=== PATIENT | female | born 1935 | race Caucasian/White ===

== ENCOUNTER → 2019-02-10 | Outpatient (CLI) | payer MEDICARE ==
--- NOTE | 2019-02-10 14:51 | RAD ---
EXAM DESCRIPTION: Chest,2 Views CLINICAL HISTORY: 84 years Female, ACUTE UPPER RESPIRATORY INFECTION COMPARISON: None available. TECHNIQUE: PA and lateral radiographs of the chest were obtained. FINDINGS: Dual lead pacemaker is noted. Trachea is midline.The cardiomediastinal silhouette is normal in size. The pulmonary vasculature is within normal limits.The lungs are clear with no acute consolidation.No evidence of pleural effusions.No evidence of pneumothorax. IMPRESSION: No acute cardiopulmonary process. Electronically signed by: Modesta Valentin MD 02/10/2019 2:49 PM PRINT PRODUCTION COORDINATOR
== END ==
LOC: LAB.O 14:18
PROVIDERS: ATTEND Nurse Practitioner
DX: J06.9 Acute upper respiratory infection, unspecified (principal)

== ENCOUNTER 2019-08-08 18:08 | Inpatient (IN) | payer MEDICARE ==
--- NOTE | 2019-08-08 18:45 | ED.PDOC ---
History of Present Illness - General Chief Complaint: General Stated Complaint: AMS, CHRONIC RIGHT SHOULDER PAIN Time Seen by Provider: 08/08/19 18:45 Source: patient, RN notes reviewed, Vital Signs reviewed, EMS notes reviewed, RN/MD Exam Limitations: no limitations - History of Present Illness Initial Comments: Patient is an 84-year-old female with history of stage IV chronic kidney disease, hypothyroidism, dementia, hypertension, GERD who [facility]. [facility] staff patient developed a cough several days ago. She had a chest x-ray yesterday that I do not have the results of but was started on cefdinir. Today, her mental status was decreased so they theron labs and sent her to ED for evaluation. On today's labs she was sent with, she has a white cell count of 22,000 and a creatinine of 2.0. Patient states that she does not feel well, but she cannot give me any further description of that. States she has had a cough for several days but denies shortness of breath or fever. Has had mild abdominal pain, but denies vomiting or diarrhea. Allergies/Adverse Reactions: Allergies Ibuprofen Adverse Reaction (Verified 08/08/19 18:13) Review of Systems - Review of Systems Constitutional: Denies: chills, fever, weakness EENTM: Denies: nose congestion, throat pain Respiratory: States: cough, short of breath Cardiology: Denies: chest pain, palpitations, syncope Gastrointestinal/Abdominal: States: abdominal pain. Denies: diarrhea, nausea, vomiting Musculoskeletal: Denies: back pain, neck pain Skin: States: no symptoms reported Neurological: Denies: headache, paresthesia, weakness All other Systems: Reviewed and Negative Past Medical History (General) - Patient Medical History Hx Seizures: No Hx Stroke: No Hx Dementia: No Hx Asthma: Yes Hx of COPD: Yes Hx Cardiac Disorders: Yes Hx Congestive Heart Failure: No Hx Pacemaker: No Hx Hypertension: No Hx Thyroid Disease: No Hx Diabetes: No Hx Gastroesophageal Reflux: No Hx Renal Disease: No Hx Cancer: No Hx of HIV: No Hx Hepatitis C: No Hx MRSA: No - Vaccination History Hx Tetanus, Diphtheria Vaccination: Yes Hx Influenza Vaccination: No Hx Pneumococcal Vaccination: No Immunizations Up to Date: No - Social History Hx Chewing Tobacco Use: No Hx Alcohol Use: No Hx Depression: No Feels Threatened In Home Enviroment: No Feels Threatened In a Relationship: No Hx Physical Abuse: No Hx Emotional Abuse: No Hx Suspected Abuse: No - Activities of Daily Living Intermediate/Assisted Living (if applicable):: [facility] - Female History Patient is a Female of Child Bearing Age (10 -59 yrs old): No Patient : No Family Medical History - Family History Mother Family History: No Known Living Status: Hx Family Asthma: No Hx Family Congestive Heart Failure: No Hx Family Hypertension: No Hx Family Stroke: No Physical Exam - Physical Exam General Appearance: Alert, Other - Lying on gurney in no distress Eye Exam: bilateral normal - PERRL Neck: non-tender, full range of motion, supple Respiratory: chest non-tender, no respiratory distress, other - Coarse BS bilaterally Cardiovascular/Chest: normal peripheral pulses, regular rate, rhythm, no edema Gastrointestinal/Abdominal: soft, no pulsatile mass, other - Mild TTP diffusely. No guarding or rigidity Back Exam: no CVA tenderness, no vertebral tenderness Extremity: normal range of motion, non-tender Neurologic: no motor/sensory deficits, alert, other - answers simple questions Skin Exam: warm/dry Progress - Progress Progress: 08/08/19 20:13 Patient has history of hypertension, chronic kidney disease and dementia who presents from [facility] with cough and decreased mental status. She was started on cefdinir yesterday. Labs done just prior to arrival show white blood cell count of 22,000 and mildly elevated creatinine. Lactic acid and urinalysis are negative. Chest x-ray shows a left lower lobe pneumonia and CT the abdomen is otherwise unremarkable. Will admit for IV antibiotics for pneumonia and continued treatment. Strict return precautions given. - Results/Orders Results/Orders: CT ABD PELVIS IMPRESSION: 1. No acute inflammatory process identified within the abdomen and pelvis. 2. Left lower lobe infiltrate. CHEST XRAY EXAM DESCRIPTION: XR Chest,1 View CLINICAL HISTORY: cough TECHNIQUE: Single frontal view of the chest is submitted. COMPARISON: 02/10/2019 FINDINGS: Heart: The cardiothoracic silhouette is within normal limits. Left chest wall dual-lead pacer. Lungs: Patchy left basilar opacification. Mediastinum: Unremarkable Pleura: No appreciable effusion. No pneumothorax. Bones: Multilevel spondylosis. No acute fracture. Upper abdomen: Unremarkable IMPRESSION: Left basilar infiltrate. 08/08/19 18:49 IV Care:Saline Lock per Protoc QSHIFT Telemetry .ONCE Sodium Chloride 0.9% (Flush) [Saline Flush Syringe] 10 ml IV PRN PRN EKG Assessment ONCE EKG Stat Pulse Ox Stat Pulse Oximetry Assessment DAILY 08/08/19 19:10 BLOOD CULTURE Stat 08/08/19 21:00 LACTIC ACID Q2H CBC and CMP in EHR Laboratory Results - last 24 hr 08/08/19 08/08/19 08/08/19 18:51 19:10 19:10 PT 9.8 INR < 1.00 PTT (SP) 25.2 Lactic Acid Creatine Kinase 16 L CK-MB (CK-2) 0.8 CK-MB (CK-2) % Not Reportable Troponin I 0.03 Urine Color Yellow Urine Appearance Clear Urine pH 5.0 Ur Specific [place] 1.020 Urine Protein 100 H Urine Glucose (UA) Negative Urine Ketones Negative Urine Blood Negative Urine Nitrite Negative Urine Bilirubin Negative Urine Urobilinogen 0.2 Ur Leukocyte Esterase Negative Urine RBC 0 Urine WBC 0-1 Ur Epithelial Cells 0 Amorphous Sediment 2+ Urine Bacteria Rare 08/08/19 19:10 PT INR PTT (SP) Lactic Acid 1.1 Creatine Kinase CK-MB (CK-2) CK-MB (CK-2) % Troponin I Urine Color Urine Appearance Urine pH Ur Specific [place] Urine Protein Urine Glucose (UA) Urine Ketones Urine Blood Urine Nitrite Urine Bilirubin Urine Urobilinogen Ur Leukocyte Esterase Urine RBC Urine WBC Ur Epithelial Cells Amorphous Sediment Urine Bacteria Departure - Departure Clinical Impression: Healthcare-associated pneumonia, Acute on chronic renal insufficiency Leukocytosis Qualifiers: Leukocytosis type: unspecified Qualified Code(s): D72.829 - Elevated white blood cell count, unspecified Dementia Qualifiers: Dementia type: unspecified type Dementia behavioral disturbance: without behavioral disturbance Qualified Code(s): F03.90 - Unspecified dementia without behavioral disturbance Time of Disposition: 20:16 Disposition: Admit Patient Condition: Fair Departure Forms: ED Discharge - Pt. Copy, Patient Portal Self Enrollment Referrals: Jeronimo Arvizu MD [Primary Care Provider] - 1-2 Weeks Decision To Admit - Decistion To Admit Decision to Admit Date: 08/08/19 Decision to Admit Time: 20:16
[2019-08-08] MEDS ORDERED: SODIUM CHLORIDE 0.9% (FLUSH) 10 ML SYG IV PRN ×2 (18:49→23:17)
[2019-08-08] MEDS ORDERED: SODIUM CHLORIDE 0.9% 1000ML 1,000 ML IVS ONE (18:49)
[2019-08-08] MEDS ORDERED: MEROPENEM 1 GM in SODIUM CHL 0.9% 50ML MIN-BAG+ 50 ML IVPB ONE (18:49)
--- NOTE | 2019-08-08 19:51 | CT ---
PROCEDURE: CT ABDOMEN PELVIS WITHOUT IV CONTRAST CLINICAL HISTORY: abd pain TECHNIQUE: Contiguous axial images obtained through the abdomen and pelvis without IV contrast. Coronal and sagittal reformatted images were provided. This exam was performed according to our departmental dose-optimization program, which includes automated exposure control, adjustment of the mA and/or kV according to patient size and/or use of iterative reconstruction technique. COMPARISON: None available for comparison. FINDINGS: Lung bases: Left basilar patchy reticular nodular opacities and consolidative changes. Coronary artery calcification. Liver: Grossly unremarkable Gallbladder and biliary system: Gallstones. No gallbladder wall thickening or pericholecystic fluid. Pancreas: Mild to moderate pancreatic parenchymal atrophy. Spleen: Grossly unremarkable Adrenals: Unremarkable Kidneys: No calculi. No hydronephrosis. Bowel: Moderate stool within the mid to distal large bowel. Colonic diverticula without adjacent inflammatory change. No obstruction. No appreciable mucosal thickening. Appendix: Pericecal suture material/surgical clips suggestive of prior appendectomy. No findings to suggest acute appendicitis. Urinary bladder: Decompressed around a Abrams catheter balloon. Reproductive: There has been a hysterectomy. No adnexal cysts or masses are identified. Lymph nodes: No pathologically enlarged lymph nodes. Peritoneum: No focal fluid collection. No free air. Vessels: Moderate to severe atherosclerotic disease. No abdominal aortic aneurysm. Abdominal wall: Tiny fat-containing umbilical hernia. Bones: Moderate to severe multilevel spondylosis.. Multilevel canal stenosis. No acute fracture. IMPRESSION: 1. No acute inflammatory process identified within the abdomen and pelvis. 2. Left lower lobe infiltrate. Electronically signed by: Isabella Aguilar MD 08/08/2019 7:50 PM CDT
--- NOTE | 2019-08-08 19:56 | RAD ---
EXAM DESCRIPTION: XR Chest,1 View CLINICAL HISTORY: cough TECHNIQUE: Single frontal view of the chest is submitted. COMPARISON: 02/10/2019 FINDINGS: Heart: The cardiothoracic silhouette is within normal limits. Left chest wall dual-lead pacer. Lungs: Patchy left basilar opacification. Mediastinum: Unremarkable Pleura: No appreciable effusion. No pneumothorax. Bones: Multilevel spondylosis. No acute fracture. Upper abdomen: Unremarkable IMPRESSION: Left basilar infiltrate. Electronically signed by: Isabella Aguilar MD 08/08/2019 7:54 PM CDT
--- NOTE | 2019-08-08 22:18 | HP ---
SUPERVISING PHYSICIAN: Dominik Keys MD CHIEF COMPLAINT: Altered mental status with upper respiratory symptoms. HISTORY OF PRESENT ILLNESS: This is an 84 year-old female patient with a history of dementia, chronic kidney disease and hypertension who came to the Emergency Room from [facility] due to some upper respiratory type symptoms as well as altered mental status. A day or so ago she had actually been treated for pneumonia with Cefdinir as an outpatient. Over the previous 24 hours, her mental status had decreased and [facility] and then she was sent to the Emergency Room. Initially, it was difficult to get a good medical history from her due to altered mental status and there was a very small amount of information from [facility]. Her initial vital signs showed a temperature of 98.4 with a heart rate of 80, blood pressure 133/44, respiratory rate 22 to 24 with an oxygen saturation of 92%. Lab showed a WBC of 22,200 with a hemoglobin of 9, hematocrit 27.9. She had a left shift on her differential. Electrolytes were within normal limits but her BUN was 49 and creatinine 2.07. Per the records, it appears that her baseline creatinine is about 1.5. Urinalysis was unremarkable. Chest x-ray shows left basilar infiltrate. She also had complaints of some nausea and vomiting with some abdominal pain. CT of the abdomen showed no acute inflammation process identified within the abdomen and pelvis and left lower lobe infiltrate. In the Emergency Room, she was given some fluids as well as some Merrem and the patient was admitted for left lower lobe pneumonia, failure outpatient therapy. PAST MEDICAL HISTORY: 1. Chronic kidney disease. 2. Hypothyroidism. 3. Bradycardia with a pacemaker. 4. Dementia. 5. Gastroesophageal reflux disease. 6. Hypertension. PAST SURGICAL HISTORY: 1. Hand surgery. 2. Knee surgery. 3. Hysterectomy. 4. Pacemaker insertion. CURRENT MEDICATIONS: Awaiting verification as well as being faxed from [facility]. ALLERGIES: Ibuprofen. FAMILY HISTORY: SOCIAL HISTORY: REVIEW OF SYSTEMS: GENERAL: Negative for chills, fever or weight changes. HEENT: Negative for sinus symptoms, ear pain, vision changes. RESPIRATORY: Positive for coughing and shortness of breath, negative for wheezing. CARDIAC: Negative for chest pain, palpitations, tachycardia. GI: Positive for generalized abdominal pain, negative for nausea, vomiting, diarrhea. MUSCULOSKELETAL: Negative for arthralgias, myalgias. . SKIN: Negative for lesions or rashes. NEUROLOGICAL: Positive for altered mental status. Negative for headaches or seizures. PHYSICAL EXAMINATION: VITAL SIGNS: Temperature 97.8, heart rate 74, blood pressure 150/59, respiratory rate 22, oxygen saturation 94%. GENERAL: This is an 84 year-old female patient lying in her hospital bed. HEENT: Normocephalic and atraumatic. Pupils are equal and reactive. NECK: Supple without mass. CHEST: Rhonchi scattered throughout all lung [place] but no wheezing or rales noted. At rest, she has a normal respiratory rate but with speaking she does get slightly tachypneic. She has to speak in 3 to 4-word phrases. CARDIOVASCULAR: Regular rate and rhythm. ABDOMEN: Soft, nondistended. She is mildly tender to palpation, especially in the right and left lower quadrants. There is no rebound tenderness, no guarding. EXTREMITIES: No cyanosis, clubbing, or edema. NEUROLOGIC: She is awake and alert. She is oriented to person only. She does answer some simple yes/no questions appropriately. SKIN: Warm and dry with no lesions noted. LABS AND FILMS: As per the history of present illness. ASSESSMENT: 1. Sepsis related to left lower lobe pneumonia, healthcare acquired. She has failed outpatient therapy. Her respiratory rate on admission was 22 to 24. Her WBCs were 22,200. She had 9 bands. She had been Cefdinir as an outpatient. 2. Acute on chronic kidney disease with a creatinine of 2.07, her baseline creatinine is 1.5. 3. Altered mental status, most likely secondary to #1. 4. High risk for Covid-19 due to her residence, age, comorbidities and upper respiratory symptoms. 5. Abdominal pain with a negative abdominal CT. 6. History of bradycardia with prior pacemaker insertion. 7. Hypertension. 8. Gastroesophageal reflux disease. 9. Dementia. 10. Chronic right shoulder pain. 11. Hypothyroidism. PLAN: The patient has been admitted to the hospital. We have initiated the pneumonia guidelines and will continue on Merrem. I gave her gentle fluids overnight and will recheck her lab in the morning. If her mental status does not improve, we may need to do a head CT. I have done Covid-19 testing and awaiting results. I will try to get her home medications from [facility] so those can be restarted. She will be on Lovenox for DVT prophylaxis as well as a PPI for ulcer prophylaxis. She will also be on aggressive pulmonary hygiene with breathing treatments, both p.r.n. and scheduled. We will continue to monitor closely and follow as needed. #[id number] MTDD
[2019-08-08] MEDS ORDERED: ACETAMINOPHEN 325 MG TAB PO PRN (23:17)
[2019-08-08] MEDS ORDERED: ONDANSETRON INJ 4 MG/2 ML VIAL IV PRN (23:17)
[2019-08-08] MEDS ORDERED: ALBUTEROL SULFATE 2.5 MG/3 ML VIAL NEB PRN (23:17)
[2019-08-08] MEDS ORDERED: SODIUM CHLORIDE 0.45% 1000ML 1,000 ML IVS ONE (23:25)
[2019-08-09] MEDS: IV SET AND CAP CHANGE INJ INJ SCH (00:23)
[2019-08-09] MEDS ORDERED: MEROPENEM 1 GM VIAL IVPB ONE (01:06)
[2019-08-09] MEDS ORDERED: SODIUM CHL 0.9% 50ML MIN-BAG+ 50 ML IVPB ONE (01:07)
[2019-08-09] MEDS ORDERED: MEROPENEM 500 MG VIAL IVPB ONE (01:09)
[2019-08-09] MEDS ORDERED: SODIUM CHLORIDE 0.9% 50ML 50 ML ONE (01:09)
[2019-08-09] MEDS: MEROPENEM 1 GM in SODIUM CHL 0.9% 50ML MIN-BAG+ 50 ML IVPB SCH ×3 (02:02→18:22)
--- NOTE | 2019-08-09 06:37 | RAD ---
EXAM: XR Chest, 1 View CLINICAL HISTORY: The patient is 84 years old and is Female; Pneumonia TECHNIQUE: Single upright portable view of the chest. COMPARISON: August 08, 2019. FINDINGS: Lungs: Hazy bibasilar infiltrates and/or subsegmental atelectasis, slightly decreased in conspicuity. No pulmonary vascular congestion. Pleural space: No pleural effusion or pneumothorax. Heart: The cardiac silhouette is enlarged versus artifact of AP technique. Mediastinum: Unremarkable. Bones/joints: The bones and joints are unchanged as visualized. Tubes, lines and devices: Left-sided cardiac pacer. Upper abdomen: No free air in the visualized upper abdomen. IMPRESSION: Hazy bibasilar infiltrates and/or subsegmental atelectasis, slightly decreased in conspicuity. Electronically signed by: Nataliia Kenyon MD 08/09/2019 6:34 AM CDT
[2019-08-09] MEDS: PANTOPRAZOLE SODIUM IV 40 MG VIAL IV SCH (06:59)
[2019-08-09] MEDS ORDERED: SODIUM PHOS/BIPHOS ENEMA ADULT 133 ML BTTL PR ONE (09:00)
[2019-08-09] MEDS: ALBUTEROL SULFATE 2.5 MG/3 ML VIAL NEB SCH ×4 (09:00→20:30)
[2019-08-09] MEDS: SODIUM CHLORIDE 0.9% (FLUSH) 10 ML SYG IV SCH ×2 (09:41→20:52)
[2019-08-09] MEDS ORDERED: MAGNESIUM SULFATE PREMIX 2GM 2 GM in PREMIX BAG 1 BAG IVPB ONE (12:54)
[2019-08-09] MEDS ORDERED: traMADol HCL 50 MG TAB PO PRN (13:34)
[2019-08-09] MEDS ORDERED: VANCOMYCIN PER PHARMACY IVPB SCH (14:30)
[2019-08-09] MEDS: CITALOPRAM HBR 20 MG TAB PO SCH (15:28)
[2019-08-09] MEDS: amLODIPine BESYLATE 5 MG TAB PO SCH (15:28)
[2019-08-09] MEDS: MAGNESIUM HYDROXIDE 30 ML UD PO SCH ×2 (15:28→18:22)
[2019-08-09] MEDS: VANCOMYCIN HCL INJ 750 MG in SODIUM CHLORIDE 0.9% 250ML 250 ML IVPB SCH (16:31)
--- NOTE | 2019-08-09 19:19 | PN ---
SUPERVISING PHYSICIAN: Dominik Keys MD DATE: 08/09/19 SUBJECTIVE: The patient is lying in bed. She is much more awake and alert today. She still has some shortness of breath, but is improved since yesterday. She denies chest pain, nausea or vomiting. OBJECTIVE: VITAL SIGNS: Temperature 98.2, heart rate 71, blood pressure 151/65, respiratory rate 20, O2 saturation 97% on 1 liter nasal cannula. RESPIRATORY: Diminished at the bases with a few scattered rhonchi. There is no wheezing. She does get slightly tachypneic with speaking, but at rest, her respiratory rate is within normal limits. CARDIAC: Regular rate and rhythm. GASTROINTESTINAL: Abdomen is soft, nondistended, nontender. Bowel sounds are positive. NEUROLOGIC: Awake, alert and oriented times three. LABORATORY: WBCs improved to 21,700, hemoglobin 8.1, hematocrit 24.6. She does have a left shift on her differential. Electrolytes are basically within normal limits. Creatinine improved to 1.94. Magnesium low at 1.5. Preliminary blood cultures show no growth. Chest x-ray shows hazy bibasilar infiltrates and/or subsegmental atelectasis, slightly decreased in conspicuity. All other labs and films have been reviewed via the EMR. ASSESSMENT: 1. Sepsis related to left lower lobe pneumonia, healthcare acquired. She has failed outpatient therapy. Her respiratory rate on admission was 22 to 24, WBCs were 22,200, 9 bands. She had been cefdinir as an outpatient. 2. Acute on chronic kidney disease with a creatinine of 2.07, her baseline creatinine is 1.5. 3. Altered mental status, most likely secondary to #1. 4. High risk for COVID-19 due to her residence, age, comorbidities and upper respiratory symptoms. 5. Abdominal pain with a negative abdominal CT. 6. History of bradycardia with prior pacemaker insertion. 7. Hypertension. 8. Gastroesophageal reflux disease. 9. Dementia. 10. Chronic right shoulder pain. 11. Hypothyroidism. 12. Anemia, most likely related to renal disease. 13. Constipation. PLAN: We will continue present plan of care. She will continue on her IV antibiotics previously ordered. I have added vancomycin due to the increased probability of MRSA and healthcare acquired pneumonia. I have ordered some routine labs for in the morning as well as an anemia panel including a B12. I have also ordered stool for guaiac. We will monitor her cultures as they become available. She did get a Fleet's enema earlier due to her chronic constipation and I ordered some Milk of Magnesia with an abdominal x-ray for in the morning. Her home medications have not been verified as of yet, but we will verify those as soon as they become available. I encouraged good pulmonary hygiene. We will continue to monitor the patient closely and follow as needed. [facility][id number] [facility]
[2019-08-09] MEDS ORDERED: DOCUSATE SODIUM 100 MG CAP ONE (19:27)
[2019-08-09] MEDS ORDERED: TEMAZEPAM 15 MG CAP ONE (19:27)
[2019-08-09] MEDS ORDERED: DONEPEZIL HCL 5 MG TAB ONE (19:27)
[2019-08-09] MEDS ORDERED: PRAVASTATIN SODIUM 20 MG TAB ONE (19:28)
[2019-08-09] MEDS ORDERED: ENOXAPARIN SODIUM 30 MG/0.3 ML SYG SUBCU ONE (19:29)
[2019-08-09] MEDS ORDERED: CARVEDILOL 3.125 MG TAB ONE (19:29)
[2019-08-09] MEDS ORDERED: MELATONIN 3 MG TAB ONE (19:29)
[2019-08-09] MEDS ORDERED: ALLOPURINOL 100 MG TAB ONE (19:29)
[2019-08-09] MEDS: CARVEDILOL 3.125 MG TAB PO SCH (20:51)
[2019-08-09] MEDS: ENOXAPARIN SODIUM 30 MG/0.3 ML SYG SUBCU SCH (20:51)
[2019-08-09] MEDS: TEMAZEPAM 15 MG CAP PO SCH (20:51)
[2019-08-09] MEDS: PRAVASTATIN SODIUM 20 MG TAB PO SCH (20:51)
[2019-08-09] MEDS: MELATONIN 3 MG TAB PO SCH (20:51)
[2019-08-09] MEDS: DOCUSATE SODIUM 100 MG CAP PO SCH (20:51)
[2019-08-09] MEDS: DONEPEZIL HCL 5 MG TAB PO SCH (20:51)
[2019-08-09] MEDS: ALLOPURINOL 100 MG TAB PO SCH (20:52)
[2019-08-10] MEDS: MEROPENEM 1 GM in SODIUM CHL 0.9% 50ML MIN-BAG+ 50 ML IVPB SCH ×3 (02:06→21:42)
[2019-08-10] MEDS ORDERED: LEVOTHYROXINE SODIUM 0.075 MG TAB ONE (05:05)
[2019-08-10] MEDS: PANTOPRAZOLE SODIUM IV 40 MG VIAL IV SCH (06:01)
[2019-08-10] MEDS: LEVOTHYROXINE SODIUM 0.075 MG TAB PO SCH (06:01)
--- NOTE | 2019-08-10 07:16 | RAD ---
EXAM: XR Chest, 1 View CLINICAL HISTORY: The patient is 84 years old and is Female; pna TECHNIQUE: Single upright portable view of the chest. COMPARISON: August 09, 2019 6:32 AM. FINDINGS: Lungs: Basilar subsegmental atelectasis or infiltrates, not significantly changed. Pleural space: No pleural effusion or pneumothorax. Heart: The cardiac silhouette is enlarged versus artifact of AP technique. Mediastinum: Unremarkable. Bones/joints: The bones and joints are unchanged as visualized. Tubes, lines and devices: Left-sided cardiac pacer again noted. Upper abdomen: No free air in the visualized upper abdomen. IMPRESSION: Basilar subsegmental atelectasis or infiltrates, not significantly changed. Electronically signed by: Nataliia Kenyon MD 08/10/2019 7:15 AM CDT
[2019-08-10] MEDS ORDERED: ASPIRIN (ENTERIC COATED) 81 MG TAB PO ONE (07:26)
[2019-08-10] MEDS ORDERED: CALCITRIOL 0.25 MCG CAP ONE (07:26)
[2019-08-10] MEDS: ALBUTEROL SULFATE 2.5 MG/3 ML VIAL NEB SCH ×4 (08:00→20:00)
[2019-08-10] MEDS: DOCUSATE SODIUM 100 MG CAP PO SCH ×2 (09:10→21:40)
[2019-08-10] MEDS: CARVEDILOL 3.125 MG TAB PO SCH ×2 (09:11→21:41)
[2019-08-10] MEDS: CITALOPRAM HBR 20 MG TAB PO SCH (09:11)
[2019-08-10] MEDS: amLODIPine BESYLATE 5 MG TAB PO SCH (09:11)
[2019-08-10] MEDS: ALLOPURINOL 100 MG TAB PO SCH ×2 (09:11→21:41)
[2019-08-10] MEDS: SODIUM CHLORIDE 0.9% (FLUSH) 10 ML SYG IV SCH ×2 (09:11→21:41)
[2019-08-10] MEDS: CALCITRIOL 0.25 MCG CAP PO SCH (09:11)
[2019-08-10] MEDS: ASPIRIN (ENTERIC COATED) 81 MG TAB PO SCH (09:11)
[2019-08-10] MEDS: VANCOMYCIN HCL INJ 750 MG in SODIUM CHLORIDE 0.9% 250ML 250 ML IVPB SCH (15:16)
[2019-08-10] MEDS ORDERED: CYANOCOBALAMIN INJ 1,000 MCG/ML VIAL IM ONE (15:37)
--- NOTE | 2019-08-10 16:26 | PN ---
SUPERVISING PHYSICIAN: Aleksey Strong MD DATE: 08/10/19 SUBJECTIVE: The patient is lying in bed asleep. She awakens easily. She has no complaints of any worsening shortness of breath, chest pain, nausea or vomiting. She does continue to get short of breath with exertion. She did say that the oxygen has helped her quite a bit and she has felt better the last couple of nights than she has in years and she feels it is probably because of the oxygen. OBJECTIVE: VITAL SIGNS: Temperature 97.9, heart rate 60, blood pressure 137/67, respiratory rate 18, O2 saturation 99% on 1 liter nasal cannula. RESPIRATORY: Diminished at the bases with a few scattered rhonchi. There is no wheezing noted. She does get slightly tachypneic with talking. CARDIAC: Regular rate and rhythm. GASTROINTESTINAL: Abdomen is soft, nondistended, nontender. Bowel sounds are positive. NEUROLOGIC: Awake, alert and oriented times three. LABORATORY: WBCs have improved to 15,100, hemoglobin 8, hematocrit 24.2. Electrolytes are basically within normal limits. Creatinine is slightly improved to 1.9. Iron 10, TIBC 215.6, iron saturation 4.6, ferritin 218.9. Vitamin B12 135. Stool for occult blood is negative. Preliminary blood cultures show no growth after 24 hours. Chest x-ray shows hazy bibasilar subsegmental atelectasis or infiltrate, not significantly changed. All other labs and films have been reviewed via the EMR. ASSESSMENT: 1. Sepsis related to left lower lobe pneumonia, healthcare acquired. She has failed outpatient therapy. Her respiratory rate on admission was 22 to 24, WBCs were 22,200, 9 bands. She had been cefdinir as an outpatient. 2. Acute on chronic kidney disease with a creatinine of 2.07, her baseline creatinine is 1.5. 3. Altered mental status, most likely secondary to #1. 4. High risk for COVID-19 due to her residence, age, comorbidities and upper respiratory symptoms. 5. Abdominal pain with a negative abdominal CT. 6. History of bradycardia with prior pacemaker insertion. 7. Hypertension. 8. Gastroesophageal reflux disease. 9. Dementia. 10. Chronic right shoulder pain. 11. Hypothyroidism. 12. Iron deficiency anemia, most likely related to renal disease. She also has a low B12 level. 13. Constipation. 14. Vitamin B12 deficiency. PLAN: We will continue present supportive care including her antibiotic therapy and monitor her cultures as they become available. I am still awaiting her COVID-19 results. I will give her a cyanocobalamin injection today and she will need to be on B12 on discharge. I have ordered lab for in the morning. I will continue with aggressive pulmonary hygiene. We need to make sure she does an ambulation study and oxygen study prior to her discharge. We will continue to monitor the patient closely and follow as needed. #[id number] MTDD
[2019-08-10] MEDS ORDERED: MEROPENEM 1 GM VIAL IVPB ONE (19:36)
[2019-08-10] MEDS ORDERED: SODIUM CHL 0.9% 50ML MIN-BAG+ 50 ML IVPB ONE (19:37)
[2019-08-10] MEDS: TEMAZEPAM 15 MG CAP PO SCH (21:40)
[2019-08-10] MEDS: MELATONIN 3 MG TAB PO SCH (21:40)
[2019-08-10] MEDS: ENOXAPARIN SODIUM 30 MG/0.3 ML SYG SUBCU SCH (21:40)
[2019-08-10] MEDS: PRAVASTATIN SODIUM 20 MG TAB PO SCH (21:40)
[2019-08-10] MEDS: DONEPEZIL HCL 5 MG TAB PO SCH (21:41)
[2019-08-11] MEDS ORDERED: PANTOPRAZOLE SODIUM TAB 40 MG PO ONE (02:14)
[2019-08-11] MEDS: LEVOTHYROXINE SODIUM 0.075 MG TAB PO SCH (05:52)
[2019-08-11] MEDS: PANTOPRAZOLE SODIUM TAB 40 MG PO SCH (05:52)
[2019-08-11] MEDS: ALBUTEROL SULFATE 2.5 MG/3 ML VIAL NEB SCH ×4 (08:00→20:00)
[2019-08-11] MEDS: ASPIRIN (ENTERIC COATED) 81 MG TAB PO SCH (08:59)
[2019-08-11] MEDS: SODIUM CHLORIDE 0.9% (FLUSH) 10 ML SYG IV SCH ×2 (08:59→20:09)
[2019-08-11] MEDS: amLODIPine BESYLATE 5 MG TAB PO SCH (08:59)
[2019-08-11] MEDS: MEROPENEM 1 GM in SODIUM CHL 0.9% 50ML MIN-BAG+ 50 ML IVPB SCH ×2 (09:00→20:09)
[2019-08-11] MEDS: CALCITRIOL 0.25 MCG CAP PO SCH (09:00)
[2019-08-11] MEDS: ALLOPURINOL 100 MG TAB PO SCH ×2 (09:00→20:08)
[2019-08-11] MEDS: CARVEDILOL 3.125 MG TAB PO SCH ×2 (09:00→20:08)
[2019-08-11] MEDS: DOCUSATE SODIUM 100 MG CAP PO SCH ×2 (09:00→20:08)
[2019-08-11] MEDS: CITALOPRAM HBR 20 MG TAB PO SCH (09:00)
[2019-08-11] MEDS: VANCOMYCIN HCL INJ 750 MG in SODIUM CHLORIDE 0.9% 250ML 250 ML IVPB SCH (15:56)
--- NOTE | 2019-08-11 17:48 | PN ---
SUPERVISING PHYSICIAN: Aleksey Strong MD DATE: 08/11/19 SUBJECTIVE: The patient is lying in bed. She awakens easily. She has no complaints of nausea or vomiting, chest pain or shortness of breath. She does feel she sleeps much better with her oxygen. OBJECTIVE: VITAL SIGNS: Temperature 98.4, heart rate 60, blood pressure 127/61, respiratory rate 18, O2 saturation 94%. RESPIRATORY: Slightly diminished at the bases but otherwise clear to auscultation. CARDIAC: Regular rate and rhythm. GASTROINTESTINAL: Abdomen is soft, nondistended, nontender. Bowel sounds are positive. NEUROLOGIC: Awake, alert and oriented times three. LABORATORY: WBCs have improved to 11,400, hemoglobin 8.2, hematocrit 25.4. Electrolytes are within normal limits. Creatinine is slightly better at 1.82. Preliminary blood cultures show no growth after 48 hours. All other labs and films have been reviewed via the EMR. ASSESSMENT: 1. Sepsis related to left lower lobe pneumonia, healthcare acquired. She has failed outpatient therapy. Her respiratory rate on admission was 22 to 24, WBCs were 22,200, 9 bands. She had been cefdinir as an outpatient. 2. Acute on chronic kidney disease with a creatinine of 2.07, her baseline creatinine is 1.5. 3. Altered mental status, most likely secondary to #1. 4. High risk for COVID-19 due to her residence, age, comorbidities and upper respiratory symptoms. 5. Abdominal pain with a negative abdominal CT. 6. History of bradycardia with prior pacemaker insertion. 7. Hypertension. 8. Gastroesophageal reflux disease. 9. Dementia. 10. Chronic right shoulder pain. 11. Hypothyroidism. 12. Iron deficiency anemia, most likely related to renal disease. She also has a low B12 level. 13. Constipation. 14. Vitamin B12 deficiency. PLAN: We will continue present supportive care. We will monitor her on room air throughout the night to see if she desaturates, if she does she may need oxygen at night at the long term. Otherwise, we are awaiting her Covid-19 results and hopefully they will be back tomorrows. Encouraged good pulmonary hygiene. We will continue to monitor her cultures. I have ordered a CBC, BNP and chest x-ray for in the morning. Her Abrams catheter has been discontinued. We will continue to monitor closely and follow as needed. #[id number] [facility]
[2019-08-11] MEDS: ENOXAPARIN SODIUM 30 MG/0.3 ML SYG SUBCU SCH (20:07)
[2019-08-11] MEDS: MELATONIN 3 MG TAB PO SCH (20:08)
[2019-08-11] MEDS: DONEPEZIL HCL 5 MG TAB PO SCH (20:08)
[2019-08-11] MEDS: PRAVASTATIN SODIUM 20 MG TAB PO SCH (20:08)
[2019-08-11] MEDS: TEMAZEPAM 15 MG CAP PO SCH (20:09)
[2019-08-11] MEDS: IV SET AND CAP CHANGE INJ INJ SCH (23:55)
[2019-08-12] MEDS: PANTOPRAZOLE SODIUM TAB 40 MG PO SCH (05:35)
[2019-08-12] MEDS: LEVOTHYROXINE SODIUM 0.075 MG TAB PO SCH (05:35)
[2019-08-12] MEDS: ALBUTEROL SULFATE 2.5 MG/3 ML VIAL NEB SCH ×2 (08:00→12:55)
[2019-08-12] MEDS: ALLOPURINOL 100 MG TAB PO SCH (08:06)
[2019-08-12] MEDS: CARVEDILOL 3.125 MG TAB PO SCH (08:06)
[2019-08-12] MEDS: CALCITRIOL 0.25 MCG CAP PO SCH (08:06)
[2019-08-12] MEDS: ASPIRIN (ENTERIC COATED) 81 MG TAB PO SCH (08:06)
[2019-08-12] MEDS: MEROPENEM 1 GM in SODIUM CHL 0.9% 50ML MIN-BAG+ 50 ML IVPB SCH (08:07)
[2019-08-12] MEDS: DOCUSATE SODIUM 100 MG CAP PO SCH (08:07)
[2019-08-12] MEDS: amLODIPine BESYLATE 5 MG TAB PO SCH (08:07)
[2019-08-12] MEDS: CITALOPRAM HBR 20 MG TAB PO SCH (08:07)
[2019-08-12] MEDS: SODIUM CHLORIDE 0.9% (FLUSH) 10 ML SYG IV SCH (08:29)
[2019-08-12 11:05] VITALS: BP 153/64; TEMP 98.1
[2019-08-12 17:33] VITALS: O2SAT 99
--- NOTE | 2019-08-13 08:29 | DS ---
SUPERVISING PHYSICIAN: Aleksey Strong MD ADMISSION DIAGNOSIS: 1. Sepsis related to left lower lobe pneumonia, healthcare acquired. She has failed outpatient therapy. Her respiratory rate on admission was 22 to 24. Her WBCs were 22,200. She had 9 bands. She had been cefdinir as an outpatient. 2. Acute on chronic kidney disease with a creatinine of 2.07, her baseline creatinine is 1.5. 3. Altered mental status, most likely secondary to #1. 4. High risk for COVID-19 due to her residence, age, comorbidities and upper respiratory symptoms. 5. Abdominal pain with a negative abdominal CT. 6. History of bradycardia with prior pacemaker insertion. 7. Hypertension. 8. Gastroesophageal reflux disease. 9. Dementia. 10. Chronic right shoulder pain. 11. Hypothyroidism. DISCHARGE DIAGNOSIS: 1. Sepsis secondary to left lower lobe pneumonia, healthcare acquired. 2. Acute on chronic kidney disease with a creatinine returning to baseline levels prior to discharge. 3. Altered mental status, related to #1, resolved. 4. COVID-19 testing pending. 5. Abdominal pain with a negative abdominal CT. 6. History of bradycardia with prior pacemaker insertion. 7. Hypertension. 8. Gastroesophageal reflux disease. 9. Dementia. 10. Chronic right shoulder pain. 11. Hypothyroidism. 12. Iron deficiency anemia, most likely related to renal disease. She also has a low B12 level. 13. Constipation. 14. Vitamin B12 deficiency. REASON FOR HOSPITALIZATION: This is an 84 year-old female patient with a history of dementia, chronic kidney disease and hypertension who came to the Emergency Room from [facility] due to some upper respiratory type symptoms as well as altered mental status. A day or so ago she had actually been treated for pneumonia with cefdinir as an outpatient. Over the previous 24 hours, her mental status had decreased and laboratory studies were sent from the long term and then she was sent to the Emergency Room. Initially, it was difficult to get a good medical history from her due to altered mental status and there was a very small amount of information from [facility]. Her initial vital signs showed a temperature of 98.4 with a heart rate of 80, blood pressure 133/44, respiratory rate 22 to 24 with an oxygen saturation of 92%. Lab showed a WBC of 22,200 with a hemoglobin of 9, hematocrit 27.9. She had a left shift on her differential. Electrolytes were within normal limits but her BUN was 49 and creatinine 2.07. Per the records, it appears that her baseline creatinine is about 1.5. Urinalysis was unremarkable. Chest x-ray shows left basilar infiltrate. She also had complaints of some nausea and vomiting with some abdominal pain. CT of the abdomen showed no acute inflammation process identified within the abdomen and pelvis and left lower lobe infiltrate. In the Emergency Room, she was given some fluids as well as some Merrem and the patient was admitted for left lower lobe pneumonia, failure outpatient therapy. LABORATORY: Discharge CBC showed white count 9,600 compared to admission of 21,700. Differential had resolved. Hemoglobin was stable at 8.2 and hematocrit 25.1 with a macrocytosis on RBC indices. Coagulation studies showed normal PT, PTT. Chemistries on discharge showed normal electrolytes. Creatinine was returning to baseline levels at 1.69. BUN was a little elevated at 43. Calcium 8.6, magnesium 2.2. Urinalysis showed 100 protein. She had one stool occult blood that was negative. MICROBIOLOGY: Blood cultures pending. COVID-19 testing pending. RADIOLOGY: Final chest x-ray done on 08/10/19 per radiologic interpretation showed bibasilar subsegmental atelectasis and infiltrates. She also had a CT of the abdomen and pelvis without contrast and per radiologic interpretation showed no acute inflammatory process identified within the abdomen and pelvis with left lower lobe infiltrate. HOSPITAL COURSE: Ms. Loya was admitted for chronic obstructive pulmonary disease exacerbation. She was started on antibiotic coverage with meropenem and vancomycin. She had aggressive pulmonary hygiene. She was placed in airborne isolation due to her COVID-19 testing which did not result out prior to discharge back to [facility]. She did show good improvement with aggressive pulmonary hygiene and antibiotic therapy and it was felt she had progressed well enough to continue with outpatient management. On discharge, she requested she change physicians if possible from Dr. Arvizu to Dr. Hart. We discussed the process of having this completed. DISCHARGE ASSESSMENT: VITAL SIGNS: Temperature 98.1, pulse 60, blood pressure 153/64, respirations 18, saturation 96% on 1 liter nasal cannula and 92% on room air. GENERAL: The patient appeared to be in no acute distress. She was resting comfortably. CHEST: Lung sounds were diminished towards the bases with no notable wheezing or rales. HEART: Regular rate and rhythm. ABDOMEN: Soft, nontender, positive bowel sounds. EXTREMITIES: No cyanosis, clubbing or edema. NEUROLOGIC: Alert and oriented x3. PLAN: Ms. Loya was discharged back to [facility]. She is to followup with Dr. Arvizu and make arrangements for Dr. Hart to take over as primary care physician. I did call their office and they are aware of this and they will take over the process of changing over as primary. She is to resume her home medications as instructed. She is to resume all previous nursing orders. I did order physical therapy and occupational therapy evaluation and treatment. Diet was her regular diet as tolerated. MEDICATIONS PRESCRIBED ON DISCHARGE: 1. Doxycycline for 6 days, no refills. 2. Levaquin 500 mg for 6 days, no refills. All other medications prior to hospitalization were continued as is. DISPOSITION: The patient was discharged to [facility]. CONDITION: Stable and improving. #[id number] [facility]
== END 2019-08-12 16:50 | DRG 871 ==
LOC: ER 18:08 → MS 22:17 → OBSVTOIN 22:17
PROVIDERS: ADMIT Nurse Practitioner Acute Care; ATTEND Nurse Practitioner Family
DX: A41.9 Sepsis, unspecified organism (principal); J15.212 Pneumonia due to Methicillin resistant Staphylococcus aureus; N17.9 Acute kidney failure, unspecified; J44.1 Chronic obstructive pulmonary disease with (acute) exacerbation; J44.0 Chronic obstructive pulmonary disease with (acute) lower respiratory infection; Y95 Nosocomial condition; N18.9 Chronic kidney disease, unspecified; R10.9 Unspecified abdominal pain; Z95.0 Presence of cardiac pacemaker; I12.9 Hypertensive chronic kidney disease with stage 1 through stage 4 chronic kidney disease, or unspecified chronic kidney disease; K21.9 Gastro-esophageal reflux disease without esophagitis; F03.90 Unspecified dementia, unspecified severity, without behavioral disturbance, psychotic disturbance, mood disturbance, and anxiety; G89.29 Other chronic pain; E03.9 Hypothyroidism, unspecified; M25.511 Pain in right shoulder; D63.1 Anemia in chronic kidney disease; E53.8 Deficiency of other specified B group vitamins; K59.00 Constipation, unspecified; Z03.818 Encounter for observation for suspected exposure to other biological agents ruled out; Z88.6 Allergy status to analgesic agent

== ENCOUNTER 2020-04-08 15:50 | Emergency (ER) | payer MEDICARE ==
--- NOTE | 2020-04-08 16:23 | RAD ---
EXAM: XR Chest, 1 View CLINICAL HISTORY: diffuse chest, shoulder, back muscle spasm ttp TECHNIQUE: Frontal view of the chest. COMPARISON: 10/30/2019 FINDINGS: Lungs: Interstitial scarring stable. Pleural space: No pneumothorax. No pleural effusion. Heart: Normal cardiac size and configuration. Mediastinum: No abnormality noted. Bones/joints: Degenerative changes present in the shoulders and spine. No acute osseous abnormality noted. Tubes, lines and devices: Stable cardiac shadow. Stable cardiac pacing wires. IMPRESSION: Chronic changes as above. No acute disease. Electronically signed by: Yessi Read MD 04/08/2020 4:21 PM [facility]
[2020-04-08] MEDS ORDERED: SODIUM CHLORIDE 0.9% 1000ML 1,000 ML IVS ONE (16:33)
[2020-04-08] MEDS ORDERED: MAGNESIUM SULFATE PREMIX 4GM 4 GM in PREMIX BAG 1 BAG IVPB ONE (16:33)
[2020-04-08] MEDS ORDERED: diazePAM 2 MG TAB PO ONE (16:34)
[2020-04-08] MEDS ORDERED: predniSONE 20 MG TAB PO ONE (16:34)
--- NOTE | 2020-04-08 18:03 | ED.PDOC ---
History of Present Illness - General Chief Complaint: General Stated Complaint: bilateral shoulder pain,BLOCK,SOB Time Seen by Provider: 04/08/20 16:00 Source: patient Exam Limitations: no limitations - History of Present Illness Initial Comments: Patient is an 85-year-old female presented emergency room secondary to reports of bilateral shoulder pain. This has been getting worse for last 24 to 36 hours. No fever. No cough. No shortness of breath. Pain extends down to bilateral pectoral muscles. It extends over both shoulders and both shoulders posteriorly. No real neck pain. She moves all extremities as she is normally able to move. No pain in lower extremities. The patient reports that they do not give enough pain or sleeping medications at her facility. The patient is actually not short of breath. She falls asleep when she is left alone. Timing/Duration: 24 hours Severity: moderate Improving Factors: nothing Worsening Factors: movement Allergies/Adverse Reactions: Allergies Ibuprofen Adverse Reaction (Verified 10/30/19 14:03) Home Medications: Ambulatory Orders Acetaminophen [Tylenol] 1,000 mg PO Q6HR PRN 08/09/19 Acetaminophen [Tylenol] 650 mg PO Q4HR PRN 08/09/19 Allopurinol [Zyloprim] 100 mg PO BID 08/09/19 Amlodipine Besylate 5 mg PO DAILY 08/09/19 Aspirin [Aspirin Adult Low Dose] 81 mg PO DAILY 08/09/19 Calcitriol 0.25 mcg PO DAILY 08/09/19 Carvedilol 6.25 mg PO BID 08/09/19 Citalopram Hydrobromide 10 mg PO DAILY 08/09/19 Docusate Sodium 200 mg PO Q12HR 08/09/19 Donepezil Hydrochloride [Donepezil HCl] 10 mg PO BEDTIME 08/09/19 Fluticasone Prop 0.05% Nasal [Flonase Nasal [place]] 2 spray BRANDAN Q12HR PRN 08/09/19 Levothyroxine Sodium 75 mcg PO DAILY 08/09/19 Melatonin 5 mg PO BEDTIME 08/09/19 Meloxicam 15 mg PO DAILY 08/09/19 Multiple Minerals W/ Vitamins [Citracal Maximum Plus] 1 tab PO DAILY 08/09/19 Oxymetazoline HCl [Afrin Pump Mist] 1 spray BRANDAN DAILY PRN 08/09/19 Pantoprazole Sodium 40 mg PO DAILY 08/09/19 Polyethylene Glycol 3350 [Polyethylene Glycol] 1 pow PO Q12HR PRN 08/09/19 Pravastatin Sodium 20 mg PO DAILY 08/09/19 Psyllium [Metamucil] 48.57 % PO MOFR 08/09/19 Sennosides [Senna] 2 capsule PO Q12HR PRN 08/09/19 Temazepam 30 mg PO BEDTIME 08/09/19 Tramadol HCl 50 mg PO Q6HR PRN 08/09/19 Ascorbic Acid [Vitamin C] 500 mg PO DAILY 10/30/19 Calcium 1,000 mg PO BEDTIME 10/30/19 Cholecalciferol [Vitamin D3] 5,000 unit PO MONTHLY 10/30/19 Cholecalciferol [Vitamin D3] 10,000 unit PO DAILY 10/30/19 Guaifenesin 800 mg PO Q8H PRN 10/30/19 Multiple Vitamins W/ Minerals [Ocuvite Adult 50+] 1 cap PO BID 10/30/19 Zinc 50 mg PO DAILY 10/30/19 Cyclobenzaprine HCl [Flexeril] 5 mg PO TID PRN #14 tab 04/08/20 predniSONE [Prednisone] 20 mg PO DAILY #5 tab 04/08/20 Review of Systems - Review of Systems Constitutional: States: no symptoms reported EENTM: States: no symptoms reported Respiratory: States: no symptoms reported Cardiology: States: chest pain Gastrointestinal/Abdominal: States: no symptoms reported Genitourinary: States: no symptoms reported Musculoskeletal: States: see HPI Skin: States: no symptoms reported Neurological: States: no symptoms reported Endocrine: States: no symptoms reported Hematologic/Lymphatic: States: no symptoms reported All other Systems: No Change from Baseline Past Medical History (General) - Patient Medical History Hx Seizures: No Hx Stroke: No Hx Dementia: Yes Hx Asthma: Yes Hx of COPD: No Hx Cardiac Disorders: No Hx Congestive Heart Failure: No Hx Pacemaker: No Hx Hypertension: Yes Hx Thyroid Disease: Yes - Hypo Hx Diabetes: No Hx Gastroesophageal Reflux: Yes Hx Renal Disease: Yes Hx Cancer: Yes - Uterine Hx of HIV: No Hx Hepatitis C: No Hx MRSA: No Surgical History: appendectomy, tonsillectomy - Vaccination History Hx Tetanus, Diphtheria Vaccination: Yes Hx Influenza Vaccination: Yes Hx Pneumococcal Vaccination: Yes - Social History Hx Tobacco Use: Yes Hx Chewing Tobacco Use: No Hx Alcohol Use: No Hx Substance Use: No Hx Substance Use Treatment: No Hx Depression: No Hx Physical Abuse: No Hx Emotional Abuse: No Hx Suspected Abuse: No - Activities of Daily Living Snf/Assisted Living (if applicable):: [facility] - Female History Patient : No Family Medical History - Family History Mother Family History: No Known Living Status: Hx Family Asthma: No Hx Family Congestive Heart Failure: No Hx Family Hypertension: No Hx Family Stroke: No Physical Exam - Physical Exam General Appearance: Alert, Anxious, No apparent distress Eye Exam: bilateral normal Ears, Nose, Throat: hearing grossly normal, normal pharynx Neck: full range of motion, supple Respiratory: lungs clear, normal breath sounds, no respiratory distress, no accessory muscle use Cardiovascular/Chest: normal peripheral pulses, no edema, other Peripheral Pulses: radial,left: 2+ Gastrointestinal/Abdominal: non tender, soft Rectal Exam: deferred Back Exam: no CVA tenderness, no vertebral tenderness Extremity: normal range of motion, non-tender, normal inspection, no pedal edema, normal capillary refill 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 Source of this is not entirely certain however she does have some dehydration and mild hypomagnesemia that may be contributing. She received a liter of IV fluids and 4 g of IV magnesium here. She has been be written for 5 days of an oral steroid and a very mild muscle relaxer to help with this. We are not going to adjust medications further otherwise. No acute pathology has been found aside from this. ER warnings are given. Follow-up with primary care doctor next week. daisy wall [id number] - Results/Orders Results/Orders: Laboratory Tests 04/08/20 04/08/20 04/08/20 16:14 16:14 16:14 WBC 8.1 RBC 2.89 L Hgb 9.0 L Hct 27.0 L MCV 93.4 MCH 31.0 MCHC 33.2 RDW 16.8 H Plt Count 188 MPV 9.3 Absolute Neuts (auto) 4.70 Absolute Lymphs (auto) 2.70 Absolute Monos (auto) 0.40 Absolute Eos (auto) 0.20 Absolute Basos (auto) 0.10 Neutrophils % 58.1 Lymphocytes % 33.3 Monocytes % 5.0 Eosinophils % 2.7 Basophils % 0.9 Sodium 139 Potassium 4.4 Chloride 104 Carbon Dioxide 28 Anion Gap 11.4 L BUN 41 H Creatinine 2.15 H BUN/Creatinine Ratio 19.1 Random Glucose 112 H Serum Osmolality 288.4 Lactic Acid Uric Acid Calcium 9.2 Magnesium 1.6 L Total Bilirubin 0.3 AST 18 ALT 12 Alkaline Phosphatase 63 Creatine Kinase 45 CK-MB (CK-2) 1.7 CK-MB (CK-2) % Not Reportable Troponin I 0.02 Serum Total Protein 6.0 L Albumin 2.9 L Globulin 3.1 Albumin/Globulin Ratio 0.9 L TSH 2.08 04/08/20 04/08/20 16:14 16:19 WBC RBC Hgb Hct MCV MCH MCHC RDW Plt Count MPV Absolute Neuts (auto) Absolute Lymphs (auto) Absolute Monos (auto) Absolute Eos (auto) Absolute Basos (auto) Neutrophils % Lymphocytes % Monocytes % Eosinophils % Basophils % Sodium Potassium Chloride Carbon Dioxide Anion Gap BUN Creatinine BUN/Creatinine Ratio Random Glucose Serum Osmolality Lactic Acid 1.2 Uric Acid 3.7 Calcium Magnesium Total Bilirubin AST ALT Alkaline Phosphatase Creatine Kinase CK-MB (CK-2) CK-MB (CK-2) % Troponin I Serum Total Protein Albumin Globulin Albumin/Globulin Ratio TSH Chest x-ray shows no acute pathology. 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 EKG shows a paced atrial rhythm at 60 bpm. Normal axis. Normal R wave progression. No ST segment or T wave changes indicative of acute ischemia. Normal QT interval. Rapid Covid and rapid flu are negative. Departure - Departure Clinical Impression: Myalgia, Dehydration, Hypomagnesemia Disposition: Discharge to Home or Self Care Condition: Fair Departure Forms: ED Discharge - Pt. Copy, Patient Portal Self Enrollment Instructions: Muscle Spasms (DC) Diet: regular diet Activity: increase activity as tolerated Referrals: Jeronimo Arvizu MD [Primary Care Provider] - 1-2 Weeks Prescriptions: Cyclobenzaprine HCl [Flexeril] 5 mg PO TID PRN #14 tab PRN Reason: Muscle Spasms predniSONE [Prednisone] 20 mg PO DAILY #5 tab Home Medications: Ambulatory Orders Acetaminophen [Tylenol] 1,000 mg PO Q6HR PRN 08/09/19 Acetaminophen [Tylenol] 650 mg PO Q4HR PRN 08/09/19 Allopurinol [Zyloprim] 100 mg PO BID 08/09/19 Amlodipine Besylate 5 mg PO DAILY 08/09/19 Aspirin [Aspirin Adult Low Dose] 81 mg PO DAILY 08/09/19 Calcitriol 0.25 mcg PO DAILY 08/09/19 Carvedilol 6.25 mg PO BID 08/09/19 Citalopram Hydrobromide 10 mg PO DAILY 08/09/19 Docusate Sodium 200 mg PO Q12HR 08/09/19 Donepezil Hydrochloride [Donepezil HCl] 10 mg PO BEDTIME 08/09/19 Fluticasone Prop 0.05% Nasal [Flonase Nasal [place]] 2 spray BRANDAN Q12HR PRN 08/09/19 Levothyroxine Sodium 75 mcg PO DAILY 08/09/19 Melatonin 5 mg PO BEDTIME 08/09/19 Meloxicam 15 mg PO DAILY 08/09/19 Multiple Minerals W/ Vitamins [Citracal Maximum Plus] 1 tab PO DAILY 08/09/19 Oxymetazoline HCl [Afrin Pump Mist] 1 spray BRANDAN DAILY PRN 08/09/19 Pantoprazole Sodium 40 mg PO DAILY 08/09/19 Polyethylene Glycol 3350 [Polyethylene Glycol] 1 pow PO Q12HR PRN 08/09/19 Pravastatin Sodium 20 mg PO DAILY 08/09/19 Psyllium [Metamucil] 48.57 % PO MOFR 08/09/19 Sennosides [Senna] 2 capsule PO Q12HR PRN 08/09/19 Temazepam 30 mg PO BEDTIME 08/09/19 Tramadol HCl 50 mg PO Q6HR PRN 08/09/19 Ascorbic Acid [Vitamin C] 500 mg PO DAILY 10/30/19 Calcium 1,000 mg PO BEDTIME 10/30/19 Cholecalciferol [Vitamin D3] 5,000 unit PO MONTHLY 10/30/19 Cholecalciferol [Vitamin D3] 10,000 unit PO DAILY 10/30/19 Guaifenesin 800 mg PO Q8H PRN 10/30/19 Multiple Vitamins W/ Minerals [Ocuvite Adult 50+] 1 cap PO BID 10/30/19 Zinc 50 mg PO DAILY 10/30/19 Cyclobenzaprine HCl [Flexeril] 5 mg PO TID PRN #14 tab 04/08/20 predniSONE [Prednisone] 20 mg PO DAILY #5 tab 04/08/20 Additional Instructions: The patient is a 85-year-old female presented emergency room secondary to myalgias surrounding her trunk. Source of this is not entirely certain however she does have some dehydration and mild hypomagnesemia that may be contributing. She received a liter of IV fluids and 4 g of IV magnesium here. She has been be written for 5 days of an oral steroid and a very mild muscle relaxer to help with this. We are not going to adjust medications further otherwise. No acute pathology has been found aside from this. ER warnings are given. Follow-up with primary care doctor next week.
[2020-04-08 19:43] VITALS: BP 160/54; TEMP 97.4; O2SAT 97
== END 2020-04-08 19:35 ==
LOC: ER 15:50
DX: M19.012 Primary osteoarthritis, left shoulder (principal); M19.011 Primary osteoarthritis, right shoulder; E86.0 Dehydration; E83.42 Hypomagnesemia; M79.10 Myalgia, unspecified site; F03.90 Unspecified dementia, unspecified severity, without behavioral disturbance, psychotic disturbance, mood disturbance, and anxiety; J45.909 Unspecified asthma, uncomplicated; I10 Essential (primary) hypertension; E03.9 Hypothyroidism, unspecified; Z20.822 Contact with and (suspected) exposure to COVID-19; Z87.891 Personal history of nicotine dependence; Z79.899 Other long term (current) drug therapy; Z79.82 Long term (current) use of aspirin; Z88.6 Allergy status to analgesic agent; Z87.448 Personal history of other diseases of urinary system
CPT/HCPCS: 36415; 71045; 80053; 82550; 82553; 83605; 83735; 84443; 84484; 84550; 85025; 87502; 87635; 93005; J3475; J7030; J7512

== ENCOUNTER → 2020-04-12 | Outpatient (CLI) | payer MEDICARE, MEDICAID | LOC: GOCC 18:07 | PROVIDERS: ATTEND General Practice | DX: N39.0 Urinary tract infection, site not specified (principal) ==